=== PATIENT | female | born 1945 | race Caucasian/White ===

== ENCOUNTER 2017-03-09 09:39 | Inpatient (IN) | payer MEDICARE, OTHER ==
[~2017-03-09] VITALS: Ht 160 cm; Wt 80.5 kg
[2017-03-09 10:17] LABS: BASOPHIL 0.8 % (0-2); EOSINOPHIL 5.3 % (0-7); HCT 35.7 % (37.0-47.0); HGB 11.6 g/dl (12.5-16.0); LYMPHOCYTE 37.9 % (15-48); MCHC 32.5 g/dL (32.0-36.0); MCV 101.4 fL (78.0-100.0); MONOCYTE 7.9 % (0-12); MPV 9.9 fL (6.0-9.5); NEUTROPHIL 48.1 % (41-80); PLT 273 K/uL (150-400); RBC 3.52 M/uL (4.20-5.40); RDW 15.3 % (11.5-14.0); WBC 7.2 K/uL (4.0-10.5)
[2017-03-09 10:26] LABS: BILIRUBIN NEGATIVE (NEGATIVE); BLOOD NEGATIVE Ery/uL (NEGATIVE); CLARITY CLEAR (CLEAR); COLOR YELLOW (YELLOW); GLUCOSE (U) 1+ mg/dL (NORMAL); KETONE (U) TRACE mg/dL (NEGATIVE); LEUKOCYTES NEGATIVE Leu/uL (NEGATIVE); NITRITE NEGATIVE (NEGATIVE); PROTEIN NEGATIVE (NEGATIVE); pH 5.5 (5.0-9.0)
[2017-03-09 10:32] LABS: AMPHETAMINES NEGATIVE (NEGATIVE); BARBITURATES NEGATIVE (NEGATIVE); BENZODIAZEPINES POSITIVE (NEGATIVE); COCAINE NEGATIVE (NEGATIVE); MARIJUANA (THC) NEGATIVE (NEGATIVE)
[2017-03-09 10:33] LABS: METHADONE NEGATIVE (NEGATIVE); TRICYCLIC ANTIDEPRESSANT NEGATIVE (NEGATIVE)
[2017-03-09 10:36] LABS: ALBUMIN 2.2 g/dL (3.4-4.8); BILIRUBIN - TOTAL 0.7 mg/dL (0.1-1.0); CREATININE 1.1 mg/dL (0.5-1.0); GLOBULIN (CALCULATION) 2.6 g/dL (2.2-4.2); POTASSIUM 3.8 mmol/L (3.5-5.1); TOTAL PROTEIN 4.8 g/dL (6.4-8.3)
[2017-03-09 10:37] LABS: TROPONIN T 0.011 ng/mL
[2017-03-10 03:50] LABS: BASOPHIL 0.2 % (0-2); EOSINOPHIL 0.2 % (0-7); HCT 35.8 % (37.0-47.0); HGB 11.5 g/dl (12.5-16.0); LYMPHOCYTE 15.8 % (15-48); MCH 32.7 pg (25.0-31.0); MCHC 32.1 g/dL (32.0-36.0); MCV 101.7 fL (78.0-100.0); MONOCYTE 1.5 % (0-12); MPV 9.6 fL (6.0-9.5); NEUTROPHIL 82.3 % (41-80); PLT 312 K/uL (150-400); RBC 3.52 M/uL (4.20-5.40); RDW 14.9 % (11.5-14.0); WBC 5.2 K/uL (4.0-10.5)
[2017-03-10 04:12] LABS: ALBUMIN 2.2 g/dL (3.4-4.8); BILIRUBIN - TOTAL 0.5 mg/dL (0.1-1.0); GLOBULIN (CALCULATION) 2.9 g/dL (2.2-4.2); POTASSIUM 5.7 mmol/L (3.5-5.1); TOTAL PROTEIN 5.1 g/dL (6.4-8.3)
[2017-03-10 04:35] LABS: TROPONIN T < 0.010 ng/mL
[2017-03-10 04:41] LABS: FT4 (FREE T4) 0.713 ng/dL (0.93-1.70); TSH (THYROID STIM HORMONE) 2.41 uIU/mL (0.270-4.200)
[2017-03-10 04:48] LABS: PRO-BNP 1326 pg/mL (0-125)
[2017-03-11 03:27] LABS: BASOPHIL 0.1 % (0-2); EOSINOPHIL 0 % (0-7); HGB 10.9 g/dl (12.5-16.0); LYMPHOCYTE 10.2 % (15-48); MCH 32.9 pg (25.0-31.0); MCHC 32.1 g/dL (32.0-36.0); MCV 102.7 fL (78.0-100.0); MONOCYTE 6.2 % (0-12); MPV 9.5 fL (6.0-9.5); NEUTROPHIL 83.5 % (41-80); PLT 284 K/uL (150-400); RBC 3.31 M/uL (4.20-5.40); RDW 15.2 % (11.5-14.0)
[2017-03-11 03:42] LABS: ALBUMIN 1.9 g/dL (3.4-4.8); BILIRUBIN - TOTAL 0.4 mg/dL (0.1-1.0); CREATININE 1.1 mg/dL (0.5-1.0); GLOBULIN (CALCULATION) 2.5 g/dL (2.2-4.2); MAGNESIUM 1.9 mg/dL (1.40-2.10); PHOSPHORUS 1.9 mg/dL (2.7-4.5); POTASSIUM 4.8 mmol/L (3.5-5.1); TOTAL PROTEIN 4.4 g/dL (6.4-8.3)
[2017-03-11 03:46] LABS: WBC 16.7 K/uL (4.0-10.5)
[2017-03-12 05:14] LABS: BASOPHIL 0.1 % (0-2); EOSINOPHIL 0 % (0-7); HCT 30.9 % (37.0-47.0); HGB 9.9 g/dl (12.5-16.0); LYMPHOCYTE 9.8 % (15-48); MCH 33.4 pg (25.0-31.0); MCV 104.4 fL (78.0-100.0); MONOCYTE 5.1 % (0-12); MPV 9.7 fL (6.0-9.5); PLT 240 K/uL (150-400); RBC 2.96 M/uL (4.20-5.40); RDW 15.6 % (11.5-14.0); WBC 11.9 K/uL (4.0-10.5)
[2017-03-12 05:29] LABS: ALBUMIN 1.9 g/dL (3.4-4.8); BILIRUBIN - TOTAL 0.4 mg/dL (0.1-1.0); GLOBULIN (CALCULATION) 2.1 g/dL (2.2-4.2); MAGNESIUM 1.87 mg/dL (1.40-2.10)
[2017-03-12 14:19] LABS: IRON 24 ug/dL (44-196); IRON % SATURATION 24 %SAT (20-50); TIBC (TOTAL IRON + UIBC) 98 U/L (228-428); UIBC 74 ug/dL (112-346)
[2017-03-13 04:37] LABS: BASOPHIL 0.1 % (0-2); EOSINOPHIL 0 % (0-7); HCT 32.3 % (37.0-47.0); HGB 10.4 g/dl (12.5-16.0); LYMPHOCYTE 13.1 % (15-48); MCH 33.3 pg (25.0-31.0); MCHC 32.2 g/dL (32.0-36.0); MCV 103.5 fL (78.0-100.0); MONOCYTE 4.7 % (0-12); MPV 9.7 fL (6.0-9.5); NEUTROPHIL 82.1 % (41-80); PLT 228 K/uL (150-400); RBC 3.12 M/uL (4.20-5.40); RDW 15.7 % (11.5-14.0); WBC 9.2 K/uL (4.0-10.5)
[2017-03-13 04:52] LABS: CREATININE 0.9 mg/dL (0.5-1.0); MAGNESIUM 1.93 mg/dL (1.40-2.10); PHOSPHORUS 3.3 mg/dL (2.7-4.5)
[2017-03-14 06:27] LABS: CREATININE 1.3 mg/dL (0.5-1.0); MAGNESIUM 1.99 mg/dL (1.40-2.10); POTASSIUM 5.1 mmol/L (3.5-5.1)
[2017-03-14 06:28] LABS: BASOPHIL 0.3 % (0-2); EOSINOPHIL 0.3 % (0-7); HCT 31.5 % (37.0-47.0); HGB 10.3 g/dl (12.5-16.0); LYMPHOCYTE 24.7 % (15-48); MCH 33.3 pg (25.0-31.0); MCHC 32.7 g/dL (32.0-36.0); MCV 101.9 fL (78.0-100.0); MONOCYTE 8.1 % (0-12); MPV 9.6 fL (6.0-9.5); NEUTROPHIL 66.6 % (41-80); PLT 277 K/uL (150-400); RBC 3.09 M/uL (4.20-5.40); RDW 15.6 % (11.5-14.0)
[2017-03-14 06:29] LABS: WBC 11.1 K/uL (4.0-10.5)
[2017-03-14 08:39] LABS: BILIRUBIN NEGATIVE (NEGATIVE); BLOOD 3+ Ery/uL (NEGATIVE); CLARITY HAZY (CLEAR); COLOR YELLOW (YELLOW); GLUCOSE (U) NORMAL (NORMAL); KETONE (U) NEGATIVE (NEGATIVE); LEUKOCYTES 1+ Leu/uL (NEGATIVE); NITRITE POSITIVE (NEGATIVE); PROTEIN NEGATIVE (NEGATIVE); pH 5.5 (5.0-9.0)
[2017-03-14 08:40] LABS: BACTERIA 4+; URINARY WBC 20-50
== END 2017-03-14 15:04 | DRG 917 ==
LOC: FER 09:39 → FICU 13:17 → FTCU 13:17 → FICU 14:00
PROVIDERS: Emergency Medicine; ADMIT Internal Medicine
DX: T42.71XA Poisoning by unspecified antiepileptic and sedative-hypnotic drugs, accidental (unintentional), initial encounter (principal); R57.1 Hypovolemic shock; G93.41 Metabolic encephalopathy; N17.9 Acute kidney failure, unspecified; M47.896 Other spondylosis, lumbar region; M54.16 Radiculopathy, lumbar region; G89.29 Other chronic pain; K59.00 Constipation, unspecified; E16.2 Hypoglycemia, unspecified; I12.9 Hypertensive chronic kidney disease with stage 1 through stage 4 chronic kidney disease, or unspecified chronic kidney disease; F32.9 Major depressive disorder, single episode, unspecified; N18.3 Chronic kidney disease, stage 3 (moderate); D50.9 Iron deficiency anemia, unspecified; R62.7 Adult failure to thrive; E11.22 Type 2 diabetes mellitus with diabetic chronic kidney disease; Z98.84 Bariatric surgery status; Z91.81 History of falling; E83.39 Other disorders of phosphorus metabolism
CPT/HCPCS: 36415; 70450; 71010; 71250; 72131; 80048; 80053; 80305; 81001; 81003; 82024; 82140; 82533; 82550; 82607; 82962; 83540; 83550; 83605; 83735; 83880; 84100; 84145; 84439; 84443; 84484; 85025; 87076; 87088; 87186; 93005; 97163; 97167; 97530; 97530-GP; 97535; G0378; G0480; J1100; J1885; J2212; J2405; J2916; J2930

== ENCOUNTER 2017-03-14 12:28 | Inpatient (IN) | payer MEDICARE ==
[~2017-03-14] VITALS: Ht 160 cm; Wt 76.0 kg
--- NOTE | 2017-03-14 18:01 | NUR ---
MEAL TRAY DELIVERED, PT TOOK COUPLE BITES BURGER AND STATES NAUSEATED. REQUESTED EMESIS BAG. MEDICATED WITH COMPAZINE 10MG PRN PER ORDER. WILL MONITOR.
[2017-03-15 05:50] LABS: BASOPHIL 0.4 % (0-2); EOSINOPHIL 0.6 % (0-7); HCT 31.9 % (37.0-47.0); HGB 10.5 g/dl (12.5-16.0); LYMPHOCYTE 25.4 % (15-48); MCH 33.2 pg (25.0-31.0); MCHC 32.9 g/dL (32.0-36.0); MCV 100.9 fL (78.0-100.0); MONOCYTE 9.9 % (0-12); MPV 9.4 fL (6.0-9.5); NEUTROPHIL 63.7 % (41-80); PLT 282 K/uL (150-400); RBC 3.16 M/uL (4.20-5.40); RDW 15.6 % (11.5-14.0)
[2017-03-15 06:06] LABS: CREATININE 1.1 mg/dL (0.5-1.0); POTASSIUM 4.9 mmol/L (3.5-5.1)
[2017-03-15 06:29] LABS: WBC 12.5 K/uL (4.0-10.5)
--- NOTE | 2017-03-16 14:29 | NUR ---
RES'D SAT UP FOR BREAKFAST THROUGH 11:30A AND WENT BACK TO BED AND REFUSED TO SIT UP FOR LUNCH
--- NOTE | 2017-03-24 14:07 | NUR ---
LATE ENTRY MS. WEBER'S DEPRESSION HAS BEEN ADDRESSED THROUGH A CASE PLAN. SHE IS CURRENLTY ON CYMBALTA WHICH WAS PRESCRIBED ON THE ACUTE UNIT. PT. WANTS TO ONLY PARTICIPATE IN ONE ON ONE IN ACTIVIITES.
--- NOTE | 2017-03-24 23:08 | NUR ---
PATIENT COMPLAINTS OF PAIN IN RECTUM DUE TO HEMORRHOIDS. NONE VISIBLE EXTERNAL AT THIS TIME,. COMPLAINS ALSO OF CONSTIPATION AND HAS ATTEMPTED TO HAVE BM SEVERAL TIMES TODAY. DUCOLAX SUPPOSITORY GIVEN WITH SMALL HARD STOOL PASSED. PT REQUESTS ENEMA AND FLEETS GIVEN - MODERATE FORMED STOOL PASSED. PATIENT EXPRESSED FEELING BETTER. ENCOURAGED PATIENT TO INCREASE WATER INTAKE. VERBALIZED SHE WAS AWARE SHE WAS NOT DRINKING ENOUGH AND WOULD TRY TO DRINK MORE.
[2017-03-25 07:36] LABS: HCT 25.6 % (37.0-47.0); MCH 33.5 pg (25.0-31.0); MCV 104.5 fL (78.0-100.0); MPV 8.8 fL (6.0-9.5); RBC 2.45 M/uL (4.20-5.40); WBC 9.9 K/uL (4.0-10.5)
[2017-03-25 07:41] LABS: HGB 8.2 g/dl (12.5-16.0)
[2017-03-25 07:56] LABS: ALBUMIN 2.5 g/dL (3.4-4.8); BILIRUBIN - TOTAL 0.3 mg/dL (0.1-1.0); CREATININE 0.8 mg/dL (0.5-1.0); GLOBULIN (CALCULATION) 2.2 g/dL (2.2-4.2); POTASSIUM 4.1 mmol/L (3.5-5.1); TOTAL PROTEIN 4.7 g/dL (6.4-8.3)
--- NOTE | 2017-03-25 13:42 | NUR ---
SE WITH [facility] CAME TO SPEAK WITH MS. WEBER REGARDING TRANSFERRING TO THEIR FACILITY FOR LONGER TERM REHAB. MS. WEBER IS IN AGREEMENT TO DC TO THEIR FACILITY AND WILL BE D/C ON 03/26/17.
--- NOTE | 2017-03-25 14:38 | NUR ---
COMPLETED DISCHARGE PAPERWORK WITH PT. SHE IS AGREEABLE TO GO [facility]. SHE WILL D/C TO THE FACILITY ON 03/26/17. D/C NOTICE AND QUESTIONNAIRE GIVEN.
[2017-03-25 14:53] LABS: RETICULOCYTE COUNT 4.3 % (1.0-2.0)
[2017-03-25 15:07] LABS: IRON 32 ug/dL (44-196); IRON % SATURATION 15 %SAT (20-50); TIBC (TOTAL IRON + UIBC) 214 U/L (228-428); UIBC 182 ug/dL (112-346)
[2017-03-25 15:23] LABS: FOLIC ACID (SERUM) 11.5 ng/mL (5.6-45.8)
--- NOTE | 2017-03-26 12:23 | NUR ---
PT. D/C TO THE [facility] THIS DATE. D/C NOTICE AND QUESTIONNAIRE GIVEN.
== END 2017-03-26 12:10 | DRG 917 ==
LOC: FSNU 12:28
PROVIDERS: ADMIT Internal Medicine
DX: T42.71XA Poisoning by unspecified antiepileptic and sedative-hypnotic drugs, accidental (unintentional), initial encounter (principal); R57.1 Hypovolemic shock; G93.41 Metabolic encephalopathy; N17.9 Acute kidney failure, unspecified; E44.0 Moderate protein-calorie malnutrition; M47.896 Other spondylosis, lumbar region; M54.16 Radiculopathy, lumbar region; G89.29 Other chronic pain; K59.00 Constipation, unspecified; E16.2 Hypoglycemia, unspecified; I12.9 Hypertensive chronic kidney disease with stage 1 through stage 4 chronic kidney disease, or unspecified chronic kidney disease; F32.9 Major depressive disorder, single episode, unspecified; N18.3 Chronic kidney disease, stage 3 (moderate); D50.9 Iron deficiency anemia, unspecified; R62.7 Adult failure to thrive; E11.22 Type 2 diabetes mellitus with diabetic chronic kidney disease; Z98.84 Bariatric surgery status; Z91.81 History of falling; E83.39 Other disorders of phosphorus metabolism; Z90.710 Acquired absence of both cervix and uterus
CPT/HCPCS: 36415; 80048; 80053; 82607; 82746; 82962; 83540; 83550; 84145; 85025; 85044; 92523; 97110; 97116; 97162; 97167; 97530; 97530-GP; 97532; 97535; J3420